=== PATIENT | male | born 1955 | race Caucasian/White ===

== ENCOUNTER → 2017-12-11 | Outpatient (CLI) | payer BC ==
[~2017-12-11] MED LIST: ACET-1600 PO
[2017-12-11 09:40] LABS: MICROSCOPIC NOT IND
[2017-12-11 09:44] LABS: CULTURE INDICATED? NO
[2017-12-11 09:44] LABS: ANION GAP 6 mmol/L (5-15); CALCIUM 8.5 mg/dL (8.5-10.1); CHLORIDE 109 mmol/L (98-107)
[2017-12-11 09:50] LABS: BASOPHILS # (AUTO) 0.02 x10^3/uL (0-0.1); BASOPHILS % (AUTO) 0 % (0-1); EOSINOPHILS # (AUTO) 0.18 x10^3/uL (0-0.4); EOSINOPHILS % (AUTO) 3 % (1-7); LYMPHOCYTES # (AUTO) 1.66 x10^3/uL (1-3.4); LYMPHOCYTES % (AUTO) 29 % (22-44); MD NO; MEAN CORPUSCULAR HEMOGLOBIN 31.5 pg (27.5-34.5); MEAN CORPUSCULAR HGB CONC 34.7 g/dL (33.2-36.2); MEAN CORPUSCULAR VOLUME 90.7 fL (81-97); MEAN PLATELET VOLUME 7.3 fL (7.4-10.4); MONOCYTES # (AUTO) 0.51 x10^3/uL (0.2-0.8); MONOCYTES % (AUTO) 9 % (2-9); NEUTROPHILS # (AUTO) 3.32 x10^3/uL (1.8-6.8); NEUTROPHILS % (AUTO) 58 % (42-75); PLATELET COUNT 262 x10^3/uL (130-400); RED BLOOD COUNT 5.14 x10^6/uL (4.38-5.82); RED CELL DISTRIBUTION WIDTH 13.1 % (9.4-14.8)
== END | disposition home or self-care (01) ==
LOC: STAR 08:57
PROVIDERS: ATTEND Orthopaedic Surgery
DX: Z01.818 Encounter for other preprocedural examination (principal); M17.11 Unilateral primary osteoarthritis, right knee; Z96.651 Presence of right artificial knee joint
CPT/HCPCS: 36415; 80048; 81003; 85025; 87081; 93005

== ENCOUNTER 2017-12-16 06:39 | Inpatient (IN) | payer BC ==
[~2017-12-16] VITALS: Ht 190.5 cm; Wt 102.1 kg
[2017-12-16] MEDS ORDERED: LACTATED RINGERS 1,000 ML IV SCH (06:52)
[2017-12-16] MEDS ORDERED: LIDOCAINE-MPF 1%, 2ML ONE (06:58)
[2017-12-16] MEDS ORDERED: OxyconTIN ER 10 MG TAB.ER PO ONE (07:00)
[2017-12-16] MEDS ORDERED: ACETAMINOPHEN 500 MG TABLET PO ONE (07:00)
[2017-12-16] MEDS ORDERED: VANCOMYCIN PER PHARMACY MC ONE (07:00)
[2017-12-16] MEDS ORDERED: ONDANSETRON ODT 8 MG PO ONE (07:00)
[2017-12-16] MEDS ORDERED: GABAPENTIN 300 MG CAPSULE PO ONE (07:00)
[2017-12-16] MEDS ORDERED: FAMOTIDINE 20 MG TABLET PO ONE (07:00)
[2017-12-16] MEDS ORDERED: EPINEPHRINE 1 MG/ML, 1ML ONE (07:01)
[2017-12-16] MEDS ORDERED: KETOROLAC 60 MG/2 ML ONE (07:01)
[2017-12-16] MEDS ORDERED: TRANEXAMIC ACID 100 MG/ML, 10ML ONE (07:01)
[2017-12-16] MEDS ORDERED: VANCOMYCIN 1,000 MG ONE (07:01)
[2017-12-16] MEDS ORDERED: ROPIvacaine/PF 0.2%, 20 ML ONE (07:01)
[2017-12-16] MEDS ORDERED: SODIUM CHLORIDE 0.9% 100 ML ONE (07:01)
[2017-12-16] MEDS ORDERED: MIDAZOLAM 1 MG/ML, 2ML ONE ×2 (07:06→11:31)
[2017-12-16] MEDS ORDERED: FENTANYL PF 100 MCG/2ML ONE ×2 (07:06→09:11)
[2017-12-16] MEDS ORDERED: VANCOMYCIN 1,400 MG in SODIUM CHLORIDE 0.9% 250 ML IV ONE (07:30)
[2017-12-16] MEDS ORDERED: PHENYLEPHRINE 10 MG/ML ONE (07:42)
[2017-12-16] MEDS ORDERED: OXYcodone 5 MG/5 ML ORAL.SOL UDC PO PRN (08:30)
[2017-12-16] MEDS ORDERED: EPHEDRINE 50 MG/ML, 1ML IVPush PRN (08:30)
[2017-12-16] MEDS ORDERED: LABETALOL 5MG/ML, 20ML IV PRN (08:30)
[2017-12-16] MEDS ORDERED: ALBUTEROL SULFATE 2.5 MG/3 ML NPPB PRN (08:30)
[2017-12-16] MEDS ORDERED: MEPERIDINE/PF 25MG/0.5ML IVPush PRN (08:30)
[2017-12-16] MEDS ORDERED: PROMETHAZINE 25 MG/ML, 1ML IV PRN (08:30)
[2017-12-16] MEDS ORDERED: HYDROcodone/APAP 7.5-325MG/15ML UDC PO PRN (08:30)
[2017-12-16] MEDS ORDERED: hydrALAzine 20 MG/ML, 1ML IV PRN (08:30)
[2017-12-16] MEDS ORDERED: FENTANYL PF 100 MCG/2ML IV PRN (08:30)
[2017-12-16] MEDS ORDERED: MIDAZOLAM 1 MG/ML, 2ML IV PRN (08:30)
[2017-12-16] MEDS ORDERED: ONDANSETRON ODT 8 MG PO PRN (08:30)
[2017-12-16] MEDS ORDERED: DEXAMETHASONE 4 MG/ML, 1ML ONE (10:04)
[2017-12-16] MEDS ORDERED: CEFAZOLIN 1,000 MG ONE (10:04)
[2017-12-16] MEDS ORDERED: PROPOFOL 10 MG/ML, 20ML ONE (10:04)
[2017-12-16] MEDS ORDERED: HYDROmorphone 2 MG/ML, 1ML ONE ×2 (10:24→10:34)
[2017-12-16] MEDS: HYDROmorphone 1 MG/ML, 1ML IV PRN ×8 (10:25→11:30)
[2017-12-16] MEDS: ACETAMINOPHEN 650 MG/20.3 ML UDC PO SCH ×3 (10:30→23:52)
[2017-12-16] MEDS: OXYcodone IR 5MG TABLET PO SCH ×2 (10:30→21:44)
[2017-12-16] MEDS ORDERED: DIAZEPAM 5 MG TABLET PO PRN (10:30)
[2017-12-16] MEDS ORDERED: ZOLPIDEM 5MG TABLET PO PRN (10:30)
[2017-12-16] MEDS ORDERED: ALUMINUM/MAG/SIMETHICONE 30 ML UDC PO PRN (10:30)
[2017-12-16] MEDS ORDERED: ONDANSETRON 2MG/ML, 2ML IV PRN (10:30)
[2017-12-16] MEDS ORDERED: HYDROmorphone 1 MG/ML, 1ML IV PRN (10:30)
[2017-12-16] MEDS ORDERED: MAGNESIUM HYDROXIDE 8%, 30ML UDC PO PRN (10:30)
[2017-12-16] MEDS ORDERED: BISACODYL 10 MG SUPP PR PRN (10:30)
[2017-12-16] MEDS ORDERED: SENNA/DOCUSATE TABLET PO PRN (10:30)
[2017-12-16] MEDS ORDERED: ONDANSETRON 4 MG TABLET PO PRN (10:30)
[2017-12-16] MEDS ORDERED: DIPHENHYDRAMINE 50 MG CAPSULE PO PRN (10:30)
[2017-12-16] MEDS ORDERED: OXYcodone IR 5MG TABLET PO PRN (10:30)
[2017-12-16] MEDS ORDERED: PROMETHAZINE 25 MG/ML, 1ML IM PRN (10:30)
[2017-12-16] MEDS ORDERED: PROMETHAZINE 12.5 MG SUPP PR PRN (10:30)
[2017-12-16] MEDS ORDERED: ENALAPRILAT 1.25 MG/ML, 2ML ONE (10:34)
[2017-12-16] MEDS ORDERED: TRANEXAMIC ACID 1,000 MG in SODIUM CHLORIDE 0.9% 100 ML IVPB ONE (10:45)
[2017-12-16] MEDS: DIAZEPAM 5 MG/ML, 2ML IVPush PRN ×2 (10:57→11:10)
[2017-12-16] MEDS ORDERED: KETOROLAC 30 MG/1 ML ONE (11:16)
[2017-12-16] MEDS ORDERED: OXYcodone 5 MG/5 ML ORAL.SOL UDC ONE (11:16)
[2017-12-16] MEDS ORDERED: PROMETHAZINE 25 MG/ML, 1ML ONE (11:24)
[2017-12-16] MEDS ORDERED: KETOROLAC 30 MG/1 ML IV PRN (11:30)
[2017-12-16 13:05] VITALS: BP 131/73
[2017-12-16] MEDS: D5%-0.45% NACL 1,000 ML IV SCH ×2 (13:12→19:40)
[2017-12-16] MEDS: KETOROLAC 30 MG/1 ML IV SCH ×2 (13:55→21:44)
[2017-12-16] MEDS: TAMSULOSIN 0.4 MG CAP.ER.24H PO SCH (14:28)
[2017-12-16] MEDS: CEFAZOLIN PMX 2GM/50ML 50 ML IVPB SCH ×2 (17:21→23:52)
[2017-12-16 19:40] VITALS: BP 95/61
[2017-12-16] MEDS: DOCUSATE 100 MG CAPSULE PO SCH (21:44)
[2017-12-17] MEDS: OXYcodone IR 5MG TABLET PO SCH ×7 (00:23→22:24)
[2017-12-17 00:33] VITALS: BP 98/60
[2017-12-17] MEDS: D5%-0.45% NACL 1,000 ML IV SCH ×4 (02:20→22:20)
[2017-12-17] MEDS: KETOROLAC 30 MG/1 ML IV SCH ×4 (02:31→22:22)
[2017-12-17 04:54] VITALS: BP 89/53
[2017-12-17] MEDS: ACETAMINOPHEN 650 MG/20.3 ML UDC PO SCH ×3 (05:19→22:22)
[2017-12-17] MEDS: ASPIRIN 81 MG TABLET EC PO SCH (05:19)
[2017-12-17] MEDS ORDERED: DEXAMETHASONE 4 MG/ML, 1ML IVPush SCH (06:00)
[2017-12-17 07:54] VITALS: BP 106/53
[2017-12-17] MEDS: MULTIVITAMINS/MINERALS TABLET PO SCH (08:26)
[2017-12-17] MEDS: DOCUSATE 100 MG CAPSULE PO SCH ×2 (08:26→22:22)
[2017-12-17] MEDS: TAMSULOSIN 0.4 MG CAP.ER.24H PO SCH (08:26)
[2017-12-17 12:38] VITALS: BP 112/63
[2017-12-17 20:03] VITALS: BP 109/64
[2017-12-18 03:11] VITALS: BP 113/60
[2017-12-18] MEDS: ACETAMINOPHEN 650 MG/20.3 ML UDC PO SCH ×2 (03:42→08:44)
[2017-12-18] MEDS: OXYcodone IR 5MG TABLET PO SCH ×3 (03:42→10:23)
[2017-12-18] MEDS: D5%-0.45% NACL 1,000 ML IV SCH (03:44)
[2017-12-18] MEDS: ASPIRIN 81 MG TABLET EC PO SCH (05:56)
[2017-12-18 07:40] VITALS: BP 122/60
[2017-12-18] MEDS: DOCUSATE 100 MG CAPSULE PO SCH (08:45)
[2017-12-18] MEDS: TAMSULOSIN 0.4 MG CAP.ER.24H PO SCH (09:00)
[2017-12-18] MEDS: MULTIVITAMINS/MINERALS TABLET PO SCH (09:00)
== END 2017-12-18 10:45 | disposition home or self-care (01) | DRG 468 ==
LOC: ORIP 06:39 → 4NOR 13:00 → DCLOUNGE 12-18 10:29
PROVIDERS: ADMIT Orthopaedic Surgery; ATTEND Orthopaedic Surgery
PROC: 0SPC0JZ Removal of Synthetic Substitute from Right Knee Joint, Open Approach (ICD-10-PCS; 2017-12-16)
PROC: 0SRC0JA Replacement of Right Knee Joint with Synthetic Substitute, Uncemented, Open Approach (ICD-10-PCS; 2017-12-16)
PROC: 0SBC0ZZ Excision of Right Knee Joint, Open Approach (ICD-10-PCS; principal; 2017-12-16 09:45)
DX: T84.032A Mechanical loosening of internal right knee prosthetic joint, initial encounter (principal); T84.84XA Pain due to internal orthopedic prosthetic devices, implants and grafts, initial encounter; Y79.2 Prosthetic and other implants, materials and accessory orthopedic devices associated with adverse incidents; M65.9 Synovitis and tenosynovitis, unspecified; M19.90 Unspecified osteoarthritis, unspecified site; I35.0 Nonrheumatic aortic (valve) stenosis; Y92.89 Other specified places as the place of occurrence of the external cause
CPT/HCPCS: 36415; 85014; 85018; C1713; J0171; J0690; J1100; J1170; J1885; J2250; J2550; J2704; J2795; J3010; J3360; J3370; Q0162; C1776; J2370; J7050; J7120

== ENCOUNTER 2019-01-29 14:34 | Outpatient (CLI) | payer BC | END 2019-01-29 23:59 | disposition home or self-care (01) | LOC: RAD 14:34 | PROVIDERS: ATTEND Orthopaedic Surgery | DX: R22.43 Localized swelling, mass and lump, lower limb, bilateral (principal); D68.8 Other specified coagulation defects; Z96.651 Presence of right artificial knee joint | CPT/HCPCS: 93970 ==